=== PATIENT | male | born 1950 | race Caucasian/White ===

== ENCOUNTER 2017-06-30 14:29 | Emergency (ER) | payer MEDICARE ==
[~2017-06-30] VITALS: Ht 188 cm; Wt 86.5 kg
[~2017-06-30 14:29] MED LIST: DIAZ5TAB PO; HYDR-3240 PO; MAGN30OR PO; NONE PER PT; SENN-31 PO
[2017-06-30 14:30] VITALS: BP 117/71
[2017-06-30] MEDS ORDERED: IBUPROFEN 200 MG TABLET ONE (15:08)
[2017-06-30] MEDS ORDERED: IBUPROFEN 200 MG TABLET PO ONE (15:30)
== END 2017-06-30 15:16 | disposition home or self-care (01) ==
LOC: ED 15:00
DX: M51.16 Intervertebral disc disorders with radiculopathy, lumbar region (principal); F17.200 Nicotine dependence, unspecified, uncomplicated; I10 Essential (primary) hypertension; I73.9 Peripheral vascular disease, unspecified
CPT/HCPCS: 99283

== ENCOUNTER 2017-07-22 20:24 | Emergency (ER) | payer MEDICARE ==
[~2017-07-22] VITALS: Ht 188 cm; Wt 88.8 kg
[2017-07-22] MEDS ORDERED: PHENYLEPHRINE NASAL 1%, 15ML SPRAY ONE (20:59)
[2017-07-22] MEDS ORDERED: PHENYLEPHRINE NASAL 1%, 30ML DROPS NAS ONE (21:00)
[2017-07-22] MEDS ORDERED: ALBUTEROL/IPRATROPIUM 2.5MG/0.5MG, 3 ML ONE (21:22)
[2017-07-22 21:30] LABS: BASOPHILS # (AUTO) 0.06 x10^3/uL (0-0.1); BASOPHILS % (AUTO) 1 % (0-1); EOSINOPHILS # (AUTO) 0.55 x10^3/uL (0-0.4); EOSINOPHILS % (AUTO) 9 % (1-7); LYMPHOCYTES # (AUTO) 1.32 x10^3/uL (1-3.4); LYMPHOCYTES % (AUTO) 22 % (22-44); MD NO; MEAN CORPUSCULAR HEMOGLOBIN 33.9 pg (27.5-34.5); MEAN CORPUSCULAR HGB CONC 34.2 g/dL (33.2-36.2); MEAN CORPUSCULAR VOLUME 99.2 fL (81-97); MEAN PLATELET VOLUME 7.1 fL (7.4-10.4); MONOCYTES # (AUTO) 0.49 x10^3/uL (0.2-0.8); MONOCYTES % (AUTO) 8 % (2-9); NEUTROPHILS # (AUTO) 3.66 x10^3/uL (1.8-6.8); NEUTROPHILS % (AUTO) 60 % (42-75); PLATELET COUNT 207 x10^3/uL (130-400); RED BLOOD COUNT 4.16 x10^6/uL (4.38-5.82); RED CELL DISTRIBUTION WIDTH 12.6 % (9.4-14.8)
[2017-07-22] MEDS ORDERED: ALBUTEROL/IPRATROPIUM 2.5MG/0.5MG, 3 ML NPPB ONE (21:30)
[2017-07-22] MEDS ORDERED: SODIUM CHLORIDE FLUSH 10ML SYR IVF ONE (21:30)
[2017-07-22 21:41] LABS: ALBUMIN 3.3 g/dL (3.4-5.0); ANION GAP 10 mmol/L (5-15); CALCIUM 8.3 mg/dL (8.5-10.1); CHLORIDE 89 mmol/L (98-107); CREATININE 0.94 mg/dL (0.7-1.3)
[2017-07-22 22:18] VITALS: BP 117/48
== END 2017-07-22 22:20 | disposition home or self-care (01) ==
LOC: ED 20:54
DX: R04.0 Epistaxis (principal); J44.1 Chronic obstructive pulmonary disease with (acute) exacerbation; F17.200 Nicotine dependence, unspecified, uncomplicated
CPT/HCPCS: 36415; 71045; 80048; 82040; 85025; 94640; 99285; J7512; J7620

== ENCOUNTER 2019-04-29 20:35 | Inpatient (IN) | payer MEDICARE ==
[~2019-04-29] VITALS: Ht 175.3 cm; Wt 91.8 kg
[~2019-04-29 20:35] MED LIST changes: +ETOMIDATE 20 MG/10 ML ONE; +MIDAZOLAM 1 MG/ML, 5ML ONE; +PROPOFOL 100 ML IV ONE; +SUCCINYLCHOLINE 20 MG/ML, 10ML ONE
[2019-04-29] MEDS ORDERED: ALBUTEROL/IPRATROPIUM 2.5MG/0.5MG, 3 ML ONE ×2 (20:38→21:04)
--- NOTE | 2019-04-29 20:48 | NUR ---
PT TO T4. GIVEN 20 ETOMIDATE AND 100 SUCC, DR GEORGES INTUBATING NOW.
--- NOTE | 2019-04-29 20:55 | NUR ---
CXR DONE. 8.0 ET TUBE AND 25 AT THE LIP.
[2019-04-29] MEDS ORDERED: PROPOFOL 100 ML IV PRN (20:57)
[2019-04-29 20:58] LABS: BASOPHILS # (AUTO) 0.07 x10^3/uL (0-0.1); BASOPHILS % (AUTO) 1 % (0-1); EOSINOPHILS # (AUTO) 0.61 x10^3/uL (0-0.4); EOSINOPHILS % (AUTO) 5 % (1-7); LYMPHOCYTES # (AUTO) 3.54 x10^3/uL (1-3.4); LYMPHOCYTES % (AUTO) 31 % (22-44); MD NO; MEAN CORPUSCULAR HEMOGLOBIN 35.4 pg (27.5-34.5); MEAN CORPUSCULAR HGB CONC 33.3 g/dL (33.2-36.2); MEAN CORPUSCULAR VOLUME 106.2 fL (81-97); MEAN PLATELET VOLUME 7.3 fL (7.4-10.4); MONOCYTES # (AUTO) 0.66 x10^3/uL (0.2-0.8); MONOCYTES % (AUTO) 6 % (2-9); NEUTROPHILS # (AUTO) 6.69 x10^3/uL (1.8-6.8); NEUTROPHILS % (AUTO) 58 % (42-75); PLATELET COUNT 191 x10^3/uL (130-400); RED BLOOD COUNT 4.72 x10^6/uL (4.38-5.82); RED CELL DISTRIBUTION WIDTH 14.7 % (9.4-14.8)
[2019-04-29] MEDS ORDERED: SUCCINYLCHOLINE 20 MG/ML, 10ML IVPush ONE (21:00)
[2019-04-29] MEDS ORDERED: ETOMIDATE 20 MG/10 ML IV ONE (21:00)
[2019-04-29] MEDS ORDERED: SODIUM CHLORIDE FLUSH 10ML SYR IVF ONE (21:00)
[2019-04-29] MEDS ORDERED: MIDAZOLAM 1 MG/ML, 2ML IVPush PRN ×2 (21:00→22:30)
[2019-04-29] MEDS ORDERED: SODIUM CHLORIDE 0.9% 1,000ML IVBOLUS ONE (21:00)
--- NOTE | 2019-04-29 21:05 | NUR ---
REPORT RECEIVED FROM RAJANI ALTAMIRANO. ASSUMED CARE OF PT. PT INTUBATED AT THIS TIME, 8.0, 24 AT THE [facility].
[2019-04-29 21:09] LABS: ALANINE AMINOTRANSFERASE 21 U/L (12-78); ALBUMIN 3.6 g/dL (3.4-5.0); ANION GAP 7 mmol/L (5-15); CALCIUM 7.6 mg/dL (8.5-10.1); CHLORIDE 94 mmol/L (98-107); CREATININE 0.57 mg/dL (0.7-1.3)
[2019-04-29] MEDS ORDERED: FENTANYL PF 100 MCG/2ML ONE ×3 (21:09→21:32)
--- NOTE | 2019-04-29 21:10 | NUR ---
CORE TEMP 95, WARMING BLANKET PLACED ON PT
[2019-04-29 21:14] LABS: ALKALINE PHOSPHATASE 67 U/L (45-117); BILIRUBIN,TOTAL 0.7 mg/dL (0.2-1.0); TOTAL PROTEIN 7.2 g/dL (6.4-8.2); TROPONIN I < 0.015 ng/mL (0.000-0.045)
--- NOTE | 2019-04-29 21:20 | NUR ---
PT SUDDENLY BECAME HYPOTENSIVE, DR. GEORGES AWARE. NEEDLE DECOMPRESSION DONE TO RIGHT 2ND INTERCOSTAL SPACE MID CLAVICULAR, WHILE SETTING UP FOR CHEST TUBE. IV PUSHES OF FENTANYL AND VERSED USED FOR SEDATION UNTIL DRIPS CAN BE ORDERED.
--- NOTE | 2019-04-29 21:26 | NUR ---
CHEST TUBE INSERTED BY DR. GEORGES TO RELIEVE TENSION PNEUMO. SUTURED IN PLACE.
--- NOTE | 2019-04-29 21:40 | NUR ---
PT REMAINS HYPOTENSIVE DESPITE CHEST TUBE INSERTION. LUNG REINFLATING ON CHEST XRAY, BUBBLING NOTED IN CHEST TUBE PLEUR EVAC.
[2019-04-29] MEDS ORDERED: MIDAZOLAM 1 MG/ML, 2ML ONE ×2 (21:41)
--- NOTE | 2019-04-29 21:45 | NUR ---
PT HAS ALREADY RECEIVED 1 LITER OF FLUID BOLUS, DR. GEORGES ORDERED 3LITER TOTAL. FLUIDS RAPIDLY INFUSING.
[2019-04-29] MEDS ORDERED: MIDAZOLAM HCL 25 MG in SODIUM CHLORIDE 0.9% 245 ML IV PRN (22:07)
--- NOTE | 2019-04-29 22:19 | NUR ---
CT DELAY, PT IS INTUBATED
[2019-04-29] MEDS ORDERED: FENTANYL PF 2,500 MCG in SODIUM CHLORIDE 0.9% 200 ML IV PRN (22:30)
[2019-04-29] MEDS ORDERED: FENTANYL PF 100 MCG/2ML IV ONE ×3 (22:30)
[2019-04-29] MEDS ORDERED: MIDAZOLAM 1 MG/ML, 2ML IVPush ONE ×2 (22:30)
[2019-04-29] MEDS ORDERED: FENTANYL PF 100 MCG/2ML IVPush ONE (22:30)
--- NOTE | 2019-04-29 22:40 | NUR ---
PER DR. GEORGES START FENTANYL DRIP AT 100 MCG/HR, VERSED AT 5MG/HR
--- NOTE | 2019-04-29 23:00 | NUR ---
REPORT TO [facility]U RAJANI RODRIGUEZ
[2019-04-29] MEDS ORDERED: SODIUM CHLORIDE 0.9% 1,000 ML IV SCH (23:05)
[2019-04-29] MEDS ORDERED: PROMETHAZINE 25 MG/ML, 1ML IM PRN (23:30)
[2019-04-29] MEDS ORDERED: methylPREDNISolone SOD SUCC 125 MG/2 ML IVPush SCH (23:30)
[2019-04-29] MEDS ORDERED: morphine SULFATE 10 MG/ML, 1ML IVPush PRN (23:30)
[2019-04-29] MEDS ORDERED: DOCUSATE 100 MG CAPSULE PO PRN (23:30)
[2019-04-29] MEDS ORDERED: ALBUTEROL/IPRATROPIUM 2.5MG/0.5MG, 3 ML NPPB SCH (23:30)
[2019-04-29] MEDS ORDERED: POTASSIUM CHLORIDE 40 MEQ in SODIUM CHLORIDE 0.9% 500 ML IV ONE (23:30)
[2019-04-29] MEDS ORDERED: BISACODYL 10 MG SUPP PR PRN (23:30)
[2019-04-29] MEDS ORDERED: ONDANSETRON 2MG/ML, 2ML IVPush PRN (23:30)
[2019-04-29] MEDS ORDERED: POLYETHYLENE GLYCOL 17 GM PACKET PO PRN (23:30)
[2019-04-29] MEDS ORDERED: FAMOTIDINE 20 MG/2 ML IVPush SCH (23:30)
[2019-04-29] MEDS ORDERED: ONDANSETRON ODT 4 MG PO PRN (23:30)
[2019-04-29] MEDS ORDERED: ACETAMINOPHEN 325 MG TABLET PO PRN (23:30)
[2019-04-30] MEDS ORDERED: PROPOFOL 100 ML IV PRN (00:07)
[2019-04-30 00:21] LABS: FREE T4 (FREE THYROXINE) 0.91 ng/dL (0.76-1.46)
[2019-04-30] MEDS ORDERED: INSULIN REGULAR 100 UNITS/ML, 3ML VIAL SQ-INSULIN SCH (00:30)
[2019-04-30] MEDS ORDERED: DEXTROSE 4 GM TAB.CHEW PO PRN (00:30)
[2019-04-30] MEDS ORDERED: PHARMACY MAY ADJ FOR RENAL FX MC SCH (00:30)
[2019-04-30] MEDS ORDERED: FENTANYL PF 100 MCG/2ML IVPush PRN (00:30)
[2019-04-30] MEDS ORDERED: DEXTROSE 50%, 50ML SYRINGE IVPush PRN (00:30)
[2019-04-30] MEDS ORDERED: SODIUM CHLORIDE 0.9% 1,000ML IVBOLUS ONE (00:30)
[2019-04-30] MEDS ORDERED: LIDOCAINE-MPF 1%, 2ML ENDO PRN (00:30)
[2019-04-30] MEDS ORDERED: GLUCAGON 1 MG IM PRN (00:30)
[2019-04-30] MEDS ORDERED: BISACODYL 10 MG SUPP PR PRN (00:30)
[2019-04-30] MEDS ORDERED: SENNA 176 MG/5 ML ORAL SOL NG PRN (00:30)
[2019-04-30] MEDS ORDERED: SENNA/DOCUSATE TABLET NG PRN (00:30)
[2019-04-30] MEDS ORDERED: LACTULOSE 20 GM/30 ML UDC NG PRN (00:30)
[2019-04-30 00:33] LABS: HEMOGLOBIN A1C 5.1 % (4.2-6.3)
[2019-04-30] MEDS: PIPERACILLIN/TAZO/PMX 3.375GM 50 ML IV SCH ×4 (00:48→19:25)
[2019-04-30] MEDS: DIAZEPAM 5 MG/ML, 2ML IV ONE ×2 (00:48→03:24)
[2019-04-30] MEDS: FAMOTIDINE 20 MG/2 ML IV SCH ×2 (00:48→12:50)
[2019-04-30 00:50] LABS: AMPHETAMINE SCREEN, URINE Negative (Negative); BARBITURATE SCREEN, URINE Negative (Negative); BENZODIAZEPINE SCREEN, URINE Positive (Negative); CANNABINOID SCREEN, URINE Negative (Negative); COCAINE SCREEN, URINE Negative (Negative); METHADONE SCREEN, URINE Negative (Negative); OPIATE SCREEN, URINE Negative (Negative)
[2019-04-30] MEDS: DOXYCYCLINE 100 MG in DEXTROSE 5% 250 ML IV SCH ×2 (00:53→12:49)
[2019-04-30] MEDS: methylPREDNISolone SOD SUCC 125 MG/2 ML IVPush SCH ×4 (00:58→20:17)
[2019-04-30] MEDS: HEPARIN 5,000 UNITS/ML, 1ML SQ SCH ×3 (00:58→17:07)
[2019-04-30] MEDS ORDERED: MAGNESIUM SULFATE PMX 2GM/50ML 50 ML IV ONE (01:30)
[2019-04-30] MEDS: ALBUTEROL/IPRATROPIUM 2.5MG/0.5MG, 3 ML INLINE SCH ×3 (02:35→10:00)
[2019-04-30 03:01] VITALS: BP 115/64
[2019-04-30] MEDS: SODIUM CHLORIDE 0.9% 1,000 ML IV SCH ×3 (03:25→19:26)
[2019-04-30] MEDS: INSULIN REGULAR 100 UNITS/ML, 3ML VIAL SQ-INSULIN SCH ×4 (04:00→20:59)
[2019-04-30 04:20] LABS: BASOPHILS # (AUTO) 0.01 x10^3/uL (0-0.1); BASOPHILS % (AUTO) 0 % (0-1); EOSINOPHILS # (AUTO) 0.07 x10^3/uL (0-0.4); EOSINOPHILS % (AUTO) 1 % (1-7); LYMPHOCYTES # (AUTO) 0.28 x10^3/uL (1-3.4); LYMPHOCYTES % (AUTO) 4 % (22-44); MD NO; MEAN CORPUSCULAR HEMOGLOBIN 35.5 pg (27.5-34.5); MEAN CORPUSCULAR HGB CONC 33.7 g/dL (33.2-36.2); MEAN CORPUSCULAR VOLUME 105.1 fL (81-97); MEAN PLATELET VOLUME 7.2 fL (7.4-10.4); MONOCYTES % (AUTO) 2 % (2-9); NEUTROPHILS # (AUTO) 6.15 x10^3/uL (1.8-6.8); NEUTROPHILS % (AUTO) 93 % (42-75); PLATELET COUNT 130 x10^3/uL (130-400); RED BLOOD COUNT 4.17 x10^6/uL (4.38-5.82); RED CELL DISTRIBUTION WIDTH 14.1 % (9.4-14.8)
[2019-04-30 04:28] LABS: ALANINE AMINOTRANSFERASE 16 U/L (12-78); ANION GAP 8 mmol/L (5-15); CALCIUM 6.8 mg/dL (8.5-10.1); CHLORIDE 103 mmol/L (98-107)
[2019-04-30 04:30] LABS: ALKALINE PHOSPHATASE 55 U/L (45-117); BILIRUBIN,TOTAL 0.7 mg/dL (0.2-1.0); CHOLESTEROL, TOTAL 119 mg/dL (140-239); HDL CHOL % 50 % (26-37); HDL CHOLESTEROL (DIRECT) 59 mg/dL (40-60); LDL CHOLESTEROL,CALCULATED 49 mg/dL (54-169); LDL/HDL RATIO 0.8 (0.5-3.0); TOTAL PROTEIN 5.7 g/dL (6.4-8.2); TRIGLYCERIDES 57 mg/dL (50-200); VLDL CHOLESTEROL 11 mg/dL (0-25)
[2019-04-30] MEDS: SODIUM CHLORIDE FLUSH 10ML SYR IVF SCH ×2 (09:02→19:26)
[2019-04-30] MEDS: ALBUTEROL/IPRATROPIUM 2.5MG/0.5MG, 3 ML NPPB SCH ×3 (10:21→18:48)
[2019-04-30] MEDS ORDERED: ALBUTEROL/IPRATROPIUM 2.5MG/0.5MG, 3 ML NPPB PRN (10:30)
[2019-04-30] MEDS: hydrALAzine 20 MG/ML, 1ML IVPush PRN (17:45)
[2019-04-30] MEDS ORDERED: DEXMEDETOMIDINE 200 MCG in SODIUM CHLORIDE 0.9% 48 ML IV PRN (19:36)
[2019-04-30] MEDS ORDERED: PHARMACY INSTRUCTION MC PRN ×4 (20:00)
[2019-04-30] MEDS ORDERED: PHENOBARBITAL SODIUM 710 MG in SODIUM CHLORIDE 0.9% 50 ML IVPB ONE (20:00)
[2019-04-30] MEDS ORDERED: THIAMINE IV SCH (20:30)
[2019-04-30] MEDS ORDERED: FOLIC ACID IV SCH (20:30)
[2019-04-30] MEDS ORDERED: MVI ADULT IV SCH (20:30)
[2019-04-30] MEDS ORDERED: D5 IV SCH (20:30)
[2019-04-30] MEDS ORDERED: NACL IV SCH (20:30)
[2019-04-30] MEDS ORDERED: SODIUM CHLORIDE 0.9% IVPB ONE (23:00)
[2019-04-30] MEDS ORDERED: PHENOBARBITAL SODIUM IVPB ONE (23:00)
[2019-05-01] MEDS: HEPARIN 5,000 UNITS/ML, 1ML SQ SCH ×3 (01:00→17:35)
[2019-05-01] MEDS: hydrALAzine 20 MG/ML, 1ML IVPush PRN (01:03)
[2019-05-01] MEDS: FAMOTIDINE 20 MG/2 ML IV SCH ×2 (01:03→14:13)
[2019-05-01] MEDS: DOXYCYCLINE 100 MG in DEXTROSE 5% 250 ML IV SCH ×2 (01:04→14:19)
[2019-05-01] MEDS: SODIUM CHLORIDE 0.9% 1,000 ML IV SCH ×2 (02:31→14:20)
[2019-05-01] MEDS: PIPERACILLIN/TAZO/PMX 3.375GM 50 ML IV SCH ×3 (03:05→14:14)
[2019-05-01] MEDS: methylPREDNISolone SOD SUCC 125 MG/2 ML IVPush SCH ×4 (03:05→20:30)
[2019-05-01] MEDS: INSULIN REGULAR 100 UNITS/ML, 3ML VIAL SQ-INSULIN SCH ×4 (03:06→21:53)
[2019-05-01 04:46] LABS: MEAN CORPUSCULAR HEMOGLOBIN 34.9 pg (27.5-34.5); MEAN CORPUSCULAR HGB CONC 33.4 g/dL (33.2-36.2); MEAN CORPUSCULAR VOLUME 104.7 fL (81-97); MEAN PLATELET VOLUME 7.3 fL (7.4-10.4); PLATELET COUNT 110 x10^3/uL (130-400); RED BLOOD COUNT 4.25 x10^6/uL (4.38-5.82); RED CELL DISTRIBUTION WIDTH 14.8 % (9.4-14.8)
[2019-05-01 04:55] LABS: ALANINE AMINOTRANSFERASE 17 U/L (12-78); ALBUMIN 2.9 g/dL (3.4-5.0); ANION GAP 5 mmol/L (5-15); CALCIUM 7.3 mg/dL (8.5-10.1); CHLORIDE 104 mmol/L (98-107)
[2019-05-01 04:58] LABS: ALKALINE PHOSPHATASE 47 U/L (45-117); BILIRUBIN,TOTAL 0.8 mg/dL (0.2-1.0); CREATININE 0.64 mg/dL (0.7-1.3); TOTAL PROTEIN 5.9 g/dL (6.4-8.2)
[2019-05-01] MEDS: PHENOBARBITAL SODIUM 65 MG/ML, 1ML IM SCH ×2 (05:10→17:21)
[2019-05-01 05:21] LABS: BASOPHILS # (AUTO) 0.01 x10^3/uL (0-0.1); BASOPHILS % (AUTO) 0 % (0-1); EOSINOPHILS % (AUTO) 0 % (1-7); LYMPHOCYTES % (AUTO) 3 % (22-44); MD SCAN; MONOCYTES # (AUTO) 0.25 x10^3/uL (0.2-0.8); MONOCYTES % (AUTO) 2 % (2-9); NEUTROPHILS # (AUTO) 10.87 x10^3/uL (1.8-6.8); NEUTROPHILS % (AUTO) 95 % (42-75)
[2019-05-01] MEDS: SODIUM CHLORIDE FLUSH 10ML SYR IVF SCH ×2 (08:12→21:00)
[2019-05-01] MEDS: ALBUTEROL/IPRATROPIUM 2.5MG/0.5MG, 3 ML NPPB SCH ×3 (10:35→20:50)
[2019-05-01] MEDS: AMPICILLIN/SULBACTAM 3 GM in SODIUM CHLORIDE 0.9% 100 ML IV SCH (18:10)
[2019-05-01] MEDS: LACTOBACILLUS CHEW TABLET PO SCH (21:54)
[2019-05-02] VITALS: BP 134/55
[2019-05-02] MEDS: HEPARIN 5,000 UNITS/ML, 1ML SQ SCH ×3 (00:11→17:47)
[2019-05-02] MEDS: AMPICILLIN/SULBACTAM 3 GM in SODIUM CHLORIDE 0.9% 100 ML IV SCH ×4 (00:11→18:35)
[2019-05-02] MEDS: methylPREDNISolone SOD SUCC 125 MG/2 ML IVPush SCH ×4 (01:24→20:03)
[2019-05-02] MEDS: INSULIN REGULAR 100 UNITS/ML, 3ML VIAL SQ-INSULIN SCH ×4 (04:00→20:35)
[2019-05-02] MEDS: PHENOBARBITAL SODIUM 65 MG/ML, 1ML IM SCH ×2 (04:20→17:47)
[2019-05-02 04:23] VITALS: BP 160/76
[2019-05-02 04:44] LABS: ALBUMIN 2.7 g/dL (3.4-5.0); ANION GAP 5 mmol/L (5-15); CALCIUM 7.8 mg/dL (8.5-10.1); CHLORIDE 104 mmol/L (98-107)
[2019-05-02 05:09] LABS: ALANINE AMINOTRANSFERASE 17 U/L (12-78); ALKALINE PHOSPHATASE 40 U/L (45-117); BILIRUBIN,TOTAL 0.7 mg/dL (0.2-1.0); CREATININE 0.57 mg/dL (0.7-1.3)
[2019-05-02 05:21] LABS: BASOPHILS # (AUTO) 0.01 x10^3/uL (0-0.1); BASOPHILS % (AUTO) 0 % (0-1); EOSINOPHILS % (AUTO) 0 % (1-7); LYMPHOCYTES # (AUTO) 0.34 x10^3/uL (1-3.4); LYMPHOCYTES % (AUTO) 4 % (22-44); MD NO; MEAN CORPUSCULAR HEMOGLOBIN 35.2 pg (27.5-34.5); MEAN CORPUSCULAR HGB CONC 33.3 g/dL (33.2-36.2); MEAN CORPUSCULAR VOLUME 105.7 fL (81-97); MEAN PLATELET VOLUME 7.4 fL (7.4-10.4); MONOCYTES # (AUTO) 0.23 x10^3/uL (0.2-0.8); MONOCYTES % (AUTO) 3 % (2-9); NEUTROPHILS # (AUTO) 8.17 x10^3/uL (1.8-6.8); NEUTROPHILS % (AUTO) 93 % (42-75); PLATELET COUNT 106 x10^3/uL (130-400); RED BLOOD COUNT 4.07 x10^6/uL (4.38-5.82); RED CELL DISTRIBUTION WIDTH 14.8 % (9.4-14.8)
[2019-05-02] MEDS: ALBUTEROL/IPRATROPIUM 2.5MG/0.5MG, 3 ML NPPB SCH ×4 (06:50→19:06)
[2019-05-02] MEDS ORDERED: ZIPRASIDONE 20 MG INJ IM PRN (08:30)
[2019-05-02] MEDS: SODIUM CHLORIDE FLUSH 10ML SYR IVF SCH ×2 (09:00→20:03)
[2019-05-02] MEDS: MULTIVITAMIN 1 TABLET PO SCH (09:16)
[2019-05-02] MEDS: LACTOBACILLUS CHEW TABLET PO SCH ×3 (09:16→20:35)
[2019-05-02] MEDS: FOLIC ACID 1 MG TABLET PO SCH (09:16)
[2019-05-02] MEDS: THIAMINE 100MG TABLET PO SCH (09:16)
[2019-05-02] MEDS ORDERED: POTASSIUM PHOSPHATE 22 MEQ in SODIUM CHLORIDE 0.9% 250 ML IV ONE (15:00)
[2019-05-02] MEDS: hydrALAzine 20 MG/ML, 1ML IVPush PRN (21:58)
[2019-05-03] MEDS: HEPARIN 5,000 UNITS/ML, 1ML SQ SCH ×3 (00:24→15:51)
[2019-05-03] MEDS: AMPICILLIN/SULBACTAM 3 GM in SODIUM CHLORIDE 0.9% 100 ML IV SCH ×3 (00:24→12:04)
[2019-05-03] MEDS: methylPREDNISolone SOD SUCC 125 MG/2 ML IVPush SCH (02:00)
[2019-05-03] MEDS: INSULIN REGULAR 100 UNITS/ML, 3ML VIAL SQ-INSULIN SCH ×4 (04:00→20:49)
[2019-05-03] MEDS: hydrALAzine 20 MG/ML, 1ML IVPush PRN (04:39)
[2019-05-03 04:56] LABS: ALANINE AMINOTRANSFERASE 20 U/L (12-78); ALBUMIN 2.8 g/dL (3.4-5.0); ANION GAP 2 mmol/L (5-15); BASOPHILS # (AUTO) 0.01 x10^3/uL (0-0.1); BASOPHILS % (AUTO) 0 % (0-1); CALCIUM 7.7 mg/dL (8.5-10.1); CHLORIDE 101 mmol/L (98-107); CREATININE 0.48 mg/dL (0.7-1.3); EOSINOPHILS % (AUTO) 0 % (1-7); LYMPHOCYTES # (AUTO) 0.31 x10^3/uL (1-3.4); LYMPHOCYTES % (AUTO) 3 % (22-44); MD NO; MEAN CORPUSCULAR HEMOGLOBIN 35.4 pg (27.5-34.5); MEAN CORPUSCULAR HGB CONC 33.5 g/dL (33.2-36.2); MEAN CORPUSCULAR VOLUME 105.6 fL (81-97); MEAN PLATELET VOLUME 7.9 fL (7.4-10.4); MONOCYTES # (AUTO) 0.32 x10^3/uL (0.2-0.8); MONOCYTES % (AUTO) 3 % (2-9); NEUTROPHILS # (AUTO) 8.84 x10^3/uL (1.8-6.8); NEUTROPHILS % (AUTO) 93 % (42-75); PLATELET COUNT 121 x10^3/uL (130-400); RED BLOOD COUNT 4.14 x10^6/uL (4.38-5.82); RED CELL DISTRIBUTION WIDTH 14.5 % (9.4-14.8)
[2019-05-03 04:58] LABS: ALKALINE PHOSPHATASE 35 U/L (45-117); BILIRUBIN,TOTAL 0.7 mg/dL (0.2-1.0); TOTAL PROTEIN 5.9 g/dL (6.4-8.2)
[2019-05-03] MEDS: PHENOBARBITAL 20 MG/5 ML ORAL SOL PO SCH ×2 (05:07→15:51)
[2019-05-03] MEDS: ALBUTEROL/IPRATROPIUM 2.5MG/0.5MG, 3 ML NPPB SCH ×4 (07:15→18:57)
[2019-05-03] MEDS: THIAMINE 100MG TABLET PO SCH (08:45)
[2019-05-03] MEDS: LACTOBACILLUS CHEW TABLET PO SCH ×3 (08:45→20:02)
[2019-05-03] MEDS: FOLIC ACID 1 MG TABLET PO SCH (08:47)
[2019-05-03] MEDS: MULTIVITAMIN 1 TABLET PO SCH (08:47)
[2019-05-03] MEDS: methylPREDNISolone SOD SUCC 40 MG/ML IVPush SCH ×2 (08:47→17:42)
[2019-05-03] MEDS: OXYcodone IR 5MG TABLET PO PRN ×2 (08:47→13:14)
[2019-05-03] MEDS: SODIUM CHLORIDE FLUSH 10ML SYR IVF SCH ×2 (08:48→20:02)
[2019-05-04] MEDS: HEPARIN 5,000 UNITS/ML, 1ML SQ SCH ×3 (02:00→16:34)
[2019-05-04] MEDS: methylPREDNISolone SOD SUCC 40 MG/ML IVPush SCH ×3 (02:00→21:19)
[2019-05-04] MEDS: INSULIN REGULAR 100 UNITS/ML, 3ML VIAL SQ-INSULIN SCH ×4 (04:00→22:00)
[2019-05-04] MEDS: PHENOBARBITAL 20 MG/5 ML ORAL SOL PO SCH ×2 (04:51→16:34)
[2019-05-04] MEDS: ALBUTEROL/IPRATROPIUM 2.5MG/0.5MG, 3 ML NPPB SCH ×4 (07:30→20:00)
[2019-05-04] MEDS: MULTIVITAMIN 1 TABLET PO SCH (09:19)
[2019-05-04] MEDS: LACTOBACILLUS CHEW TABLET PO SCH ×3 (09:19→21:19)
[2019-05-04] MEDS: FOLIC ACID 1 MG TABLET PO SCH (09:19)
[2019-05-04] MEDS: SODIUM CHLORIDE FLUSH 10ML SYR IVF SCH ×2 (09:20→21:19)
[2019-05-04] MEDS: THIAMINE 100MG TABLET PO SCH (09:21)
[2019-05-04 14:01] VITALS: BP 153/69
[2019-05-04 19:17] VITALS: BP 145/70
[2019-05-04] MEDS: AMPICILLIN/SULBACTAM 3 GM in SODIUM CHLORIDE 0.9% 100 ML IV SCH (23:30)
[2019-05-05 01:18] VITALS: BP 145/67
[2019-05-05] MEDS: HEPARIN 5,000 UNITS/ML, 1ML SQ SCH (01:41)
[2019-05-05] MEDS: INSULIN REGULAR 100 UNITS/ML, 3ML VIAL SQ-INSULIN SCH ×4 (04:00→21:43)
[2019-05-05] MEDS: AMPICILLIN/SULBACTAM 3 GM in SODIUM CHLORIDE 0.9% 100 ML IV SCH (05:47)
[2019-05-05] MEDS: PHENOBARBITAL 20 MG/5 ML ORAL SOL PO SCH ×2 (05:47→16:56)
[2019-05-05 07:25] VITALS: BP 178/79
[2019-05-05] MEDS: SODIUM CHLORIDE FLUSH 10ML SYR IVF SCH ×2 (07:53→21:37)
[2019-05-05] MEDS: methylPREDNISolone SOD SUCC 40 MG/ML IVPush SCH (07:53)
[2019-05-05] MEDS: LACTOBACILLUS CHEW TABLET PO SCH ×3 (07:54→21:37)
[2019-05-05] MEDS: THIAMINE 100MG TABLET PO SCH (07:54)
[2019-05-05] MEDS: hydrALAzine 20 MG/ML, 1ML IVPush PRN (07:54)
[2019-05-05] MEDS: FOLIC ACID 1 MG TABLET PO SCH (07:54)
[2019-05-05] MEDS: MULTIVITAMIN 1 TABLET PO SCH (07:54)
[2019-05-05 08:38] LABS: HIT RESULT POSITIVE (NEGATIVE)
[2019-05-05] MEDS: ALBUTEROL/IPRATROPIUM 2.5MG/0.5MG, 3 ML NPPB SCH ×4 (08:49→19:37)
[2019-05-05 10:44] VITALS: BP 142/77
[2019-05-05] MEDS: LISINOPRIL 10 MG TABLET PO SCH ×2 (10:51→21:40)
[2019-05-05] MEDS: CEFAZOLIN PMX 1GM/50ML 50 ML IV SCH ×2 (10:51→18:12)
[2019-05-05 13:13] VITALS: BP 119/66
[2019-05-05 19:20] VITALS: BP 144/73
[2019-05-05] MEDS: OXYcodone IR 5MG TABLET PO PRN (21:36)
[2019-05-06] MEDS: CEFAZOLIN PMX 1GM/50ML 50 ML IV SCH (02:36)
[2019-05-06 02:47] VITALS: BP 134/71
[2019-05-06] MEDS: INSULIN REGULAR 100 UNITS/ML, 3ML VIAL SQ-INSULIN SCH (04:00)
[2019-05-06] MEDS ORDERED: PHENOBARBITAL 20 MG/5 ML ORAL SOL PO SCH (05:00)
[2019-05-06 05:31] LABS: BASOPHILS # (AUTO) 0.01 x10^3/uL (0-0.1); BASOPHILS % (AUTO) 0 % (0-1); EOSINOPHILS # (AUTO) 0.07 x10^3/uL (0-0.4); EOSINOPHILS % (AUTO) 1 % (1-7); LYMPHOCYTES # (AUTO) 1.34 x10^3/uL (1-3.4); LYMPHOCYTES % (AUTO) 26 % (22-44); MD NO; MEAN CORPUSCULAR HEMOGLOBIN 35.2 pg (27.5-34.5); MEAN CORPUSCULAR HGB CONC 33.2 g/dL (33.2-36.2); MEAN PLATELET VOLUME 7.5 fL (7.4-10.4); MONOCYTES # (AUTO) 0.52 x10^3/uL (0.2-0.8); MONOCYTES % (AUTO) 10 % (2-9); NEUTROPHILS % (AUTO) 62 % (42-75); PLATELET COUNT 123 x10^3/uL (130-400); RED BLOOD COUNT 3.74 x10^6/uL (4.38-5.82)
[2019-05-06 05:37] LABS: INTERNATIONAL NORMALIZED RATIO 1.01 (0.93-1.1); PROTHROMBIN TIME 10.6 Seconds (9.6-11.5)
[2019-05-06 05:39] LABS: CHLORIDE 99 mmol/L (98-107)
[2019-05-06 05:44] LABS: ANION GAP 6 mmol/L (5-15); CALCIUM 7.7 mg/dL (8.5-10.1); CREATININE 0.47 mg/dL (0.7-1.3)
[2019-05-06] MEDS: ALBUTEROL/IPRATROPIUM 2.5MG/0.5MG, 3 ML NPPB SCH ×4 (07:00→19:36)
[2019-05-06 07:12] VITALS: BP 147/77
[2019-05-06] MEDS: FOLIC ACID 1 MG TABLET PO SCH (08:02)
[2019-05-06] MEDS: THIAMINE 100MG TABLET PO SCH (08:02)
[2019-05-06] MEDS: LACTOBACILLUS CHEW TABLET PO SCH ×3 (08:02→20:59)
[2019-05-06] MEDS: LISINOPRIL 10 MG TABLET PO SCH ×2 (08:02→21:00)
[2019-05-06] MEDS: MULTIVITAMIN 1 TABLET PO SCH (08:02)
[2019-05-06] MEDS: SODIUM CHLORIDE FLUSH 10ML SYR IVF SCH ×2 (08:03→21:00)
[2019-05-06] MEDS: AMPICILLIN/SULBACTAM 3 GM in SODIUM CHLORIDE 0.9% 100 ML IV SCH ×3 (10:32→22:53)
[2019-05-06 13:17] VITALS: BP 143/80
[2019-05-06 19:45] VITALS: BP 145/73
[2019-05-07 02:33] VITALS: BP 125/63
[2019-05-07] MEDS: AMPICILLIN/SULBACTAM 3 GM in SODIUM CHLORIDE 0.9% 100 ML IV SCH ×2 (04:44→10:45)
[2019-05-07] MEDS: ALBUTEROL/IPRATROPIUM 2.5MG/0.5MG, 3 ML NPPB SCH (07:19)
[2019-05-07 08:16] VITALS: BP 117/58
[2019-05-07] MEDS: MULTIVITAMIN 1 TABLET PO SCH (09:48)
[2019-05-07] MEDS: THIAMINE 100MG TABLET PO SCH (09:49)
[2019-05-07 09:50] VITALS: BP 138/68
[2019-05-07] MEDS: LACTOBACILLUS CHEW TABLET PO SCH (09:50)
[2019-05-07] MEDS: SODIUM CHLORIDE FLUSH 10ML SYR IVF SCH (09:51)
[2019-05-07] MEDS: LISINOPRIL 10 MG TABLET PO SCH (09:51)
[2019-05-07] MEDS: FOLIC ACID 1 MG TABLET PO SCH (09:51)
[2019-05-07] MEDS ORDERED: ALBUTEROL/IPRATROPIUM 2.5MG/0.5MG, 3 ML NPPB PRN (11:30)
[2019-05-07 13:40] VITALS: BP 128/65
[2019-05-07] MEDS ORDERED: FOLI-17 PO (14:14)
[2019-05-07] MEDS ORDERED: PRED5TAB PO (14:14)
[2019-05-07] MEDS ORDERED: ACID1TAB7 PO (14:14)
[2019-05-07] MEDS ORDERED: MULT1TAB60 PO (14:14)
[2019-05-07] MEDS ORDERED: IPRA3AMP30 NPPB (14:14)
[2019-05-07] MEDS ORDERED: DOCU100C33 PO (14:14)
[2019-05-07] MEDS ORDERED: THIA100T67 PO (14:14)
[2019-05-07] MEDS ORDERED: LISI-167 PO (14:14)
[2019-05-07] MEDS ORDERED: LEVO750T26 PO (14:14)
== END 2019-05-07 15:34 | disposition home or self-care (01) | DRG 208 ==
LOC: ED 21:16 → EDIP 23:25 → CCU 23:37 → 4NE 05-04 13:44 → DCLOUNGE 05-07 15:21
PROVIDERS: ADMIT Internal Medicine; ATTEND Internal Medicine
PROC: 0BH17EZ Insertion of Endotracheal Airway into Trachea, Via Natural or Artificial Opening (ICD-10-PCS; principal; 2019-04-29)
PROC: 5A1945Z Respiratory Ventilation, 24-96 Consecutive Hours (ICD-10-PCS; 2019-04-29)
PROC: 0W9930Z Drainage of Right Pleural Cavity with Drainage Device, Percutaneous Approach (ICD-10-PCS; 2019-04-29)
DX: J96.02 Acute respiratory failure with hypercapnia (principal); J93.0 Spontaneous tension pneumothorax; G92 Toxic encephalopathy; J15.4 Pneumonia due to other streptococci; S22.41XA Multiple fractures of ribs, right side, initial encounter for closed fracture; S32.029A Unspecified fracture of second lumbar vertebra, initial encounter for closed fracture; S32.019A Unspecified fracture of first lumbar vertebra, initial encounter for closed fracture; E87.1 Hypo-osmolality and hyponatremia; J44.0 Chronic obstructive pulmonary disease with (acute) lower respiratory infection; J44.1 Chronic obstructive pulmonary disease with (acute) exacerbation; Z99.11 Dependence on respirator [ventilator] status; F10.239 Alcohol dependence with withdrawal, unspecified; T79.7XXA Traumatic subcutaneous emphysema, initial encounter; D69.6 Thrombocytopenia, unspecified; D75.89 Other specified diseases of blood and blood-forming organs; E86.0 Dehydration; E87.6 Hypokalemia; E88.09 Other disorders of plasma-protein metabolism, not elsewhere classified; F10.229 Alcohol dependence with intoxication, unspecified; F17.210 Nicotine dependence, cigarettes, uncomplicated; I10 Essential (primary) hypertension; I73.9 Peripheral vascular disease, unspecified; W18.30XA Fall on same level, unspecified, initial encounter; Y93.89 Activity, other specified; Y92.89 Other specified places as the place of occurrence of the external cause; Y99.8 Other external cause status; Z86.73 Personal history of transient ischemic attack (TIA), and cerebral infarction without residual deficits
CPT/HCPCS: 31500; 36415; 36600; 51702; 70450; 71045; 71250; 80048; 80053; 80061; 80307; 82330; 82542; 82607; 82803; 82962; 83036; 83605; 83735; 83880; 84100; 84145; 84439; 84443; 84478; 84484; 85025; 85610; 86022; 87040; 87070; 87081; 87181; 87205; 93005; 93970; 94002; 94003; 94640; 99292; G0378; J0295; J0690; J1644; J1815; J2250; J2543; J2560; J2704; J3010; J3360; J3411; J3480; J7060; J7620; J0330; J0360; J2920; J2930; J3475; J3490; J7030; J7040; J7050; J7512

== ENCOUNTER 2020-12-28 09:21 | Observation (INO) | payer MEDICARE ==
[~2020-12-28] VITALS: Ht 188 cm; Wt 65.1 kg
[~2020-12-28 09:21] MED LIST changes: +ACID1TAB7 PO; +ASCO500C10 PO; +CALC-780 PO; +DOCU100C33 PO; -ETOMIDATE 20 MG/10 ML ONE; +FOLI1TAB32 PO; +HYDR-2214 PO; -HYDR-3240 PO; +IPRA3AMP30 NPPB; +LEVO750T26 PO; +LISI-167 PO; -MIDAZOLAM 1 MG/ML, 5ML ONE; +MULT-449 PO; +PRED5TAB PO; -PROPOFOL 100 ML IV ONE; -SUCCINYLCHOLINE 20 MG/ML, 10ML ONE; +THIA100T67 PO
--- NOTE | 2020-12-28 09:49 | NUR ---
PATIENT BIB EMS DUE TO SPOUSE STATING "I CANNOT TAKE CARE OF HIM ANYMORE, I NEED A BREAK." NO INTERVENTIONS AND VSS EN ROUTE, PATIENT DENIES ANY PAIN OR MEDICAL CONCERNS. UPON ASSESSMENT PATIENT A&[id number], KNOWS HIS NAME AND AND THAT HE IS AT THE HOSPITAL, DOES NOT KNOW WHY HE IS HERE OR WHO THE PRESIDENT IS OR WHAT THE YEAR IS. WHEN ASKED WHO THE PRESIDENT IS, PATIENT STATES "I DON'T KNOW HIS NAME, HE HAS A WEIRD NAME." PATIENT DENIES PAIN, NO MEDICAL CONCERNS, ABLE TO ANSWER QUESTIONS ABOUT HIS MEDICAL HISTORY, VSS, CALL LIGHT WITHIN REACH.
--- NOTE | 2020-12-28 10:45 | NUR ---
PATIENT MEDICATED PER eMAR, BP 167/83, OTHER VSS, URINE COLLECTED AND SENT TO LAB. PATIENT TO CT SCAN.
[2020-12-28 10:46] LABS: BASOPHILS % (AUTO) 1 % (0-1); EOSINOPHILS % (AUTO) 5 % (1-7); LYMPHOCYTES % (AUTO) 19 % (22-44); MEAN CORPUSCULAR HEMOGLOBIN 35.9 pg (27.5-34.5); MEAN CORPUSCULAR HGB CONC 35.6 g/dL (33.2-36.2); MEAN PLATELET VOLUME 7.5 fL (7.4-10.4); MONOCYTES % (AUTO) 9 % (2-9); NEUTROPHILS % (AUTO) 66 % (42-75); PLATELET COUNT 192 x10^3/uL (130-400); RED BLOOD COUNT 4.31 x10^6/uL (4.38-5.82); RED CELL DISTRIBUTION WIDTH 13.6 % (9.4-14.8)
[2020-12-28 10:54] LABS: MICROSCOPIC NOT IND
[2020-12-28 10:59] LABS: ALANINE AMINOTRANSFERASE 18 U/L (12-78); ALBUMIN 3.9 g/dL (3.4-5.0); ANION GAP 6 mmol/L (5-15); CALCIUM 8.9 mg/dL (8.5-10.1); CHLORIDE 96 mmol/L (98-107); CREATININE 0.98 mg/dL (0.7-1.3); GAMMA GLUTAMYL TRANSPEPTIDASE 14 U/L (15-85)
[2020-12-28 11:04] LABS: ALKALINE PHOSPHATASE 61 U/L (45-117); TOTAL PROTEIN 7.6 g/dL (6.4-8.2); TROPONIN I < 0.015 ng/mL (0.000-0.045)
--- NOTE | 2020-12-28 11:17 | NUR ---
break rn = pt placed on 2l nc o2 due to mid to high 80's o2 sat
--- NOTE | 2020-12-28 11:56 | NUR ---
PATIENT FOUND STANDING UP IN ROOM, TAKING MONITORING EQUIPMENT OFF AND GOWN, APPEARS CONFUSED TO WHAT IS GOING ON. EDUCATED PATIENT THAT ERMD NEEDS TO COME BACK IN AND REASSESS, PATIENT REDIRECTED TO [facility] AND RE-ATTACHED TO MONITORING EQUIPMENT, ERMD NOTIFIED.
--- NOTE | 2020-12-28 12:06 | NUR ---
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
--- NOTE | 2020-12-28 12:48 | NUR ---
ALEXANDER REYNA SPOKE WITH PATIENT, WILL TALK WITH ERMD TO DISCUSS POC.
--- NOTE | 2020-12-28 12:48 | NUR ---
BEDSIDE REPORT GIVEN TO RAJANI COLES FOR TRANSFER OF PATIENT CARE.
--- NOTE | 2020-12-28 14:06 | NUR ---
PER DR. STEWART NO IV NECESSARY FOR PATIENT AT THIS TIME. REPORT TO RAJANI CANTRELL. RAJANI CANTRELL AWARE OF NO IV.
[2020-12-28] MEDS ORDERED: ONDANSETRON 2MG/ML, 2ML IVPush PRN (14:30)
[2020-12-28] MEDS ORDERED: ENALAPRILAT 1.25 MG/ML, 2ML IVPush PRN (14:30)
[2020-12-28] MEDS ORDERED: BISACODYL 10 MG SUPP PR PRN (14:30)
[2020-12-28] MEDS ORDERED: POLYETHYLENE GLYCOL 17 GM PACKET PO PRN (14:30)
[2020-12-28] MEDS ORDERED: ACETAMINOPHEN 325 MG TABLET PO PRN (14:30)
[2020-12-28 15:17] VITALS: BP 171/85
[2020-12-28 18:38] VITALS: BP 226/91
[2020-12-28] MEDS ORDERED: HALOPERIDOL 5 MG/ML IM PRN (20:00)
[2020-12-28] MEDS ORDERED: LISINOPRIL 20 MG TABLET PO ONE (20:00)
[2020-12-29 00:38] VITALS: BP 220/69
[2020-12-29 02:38] VITALS: BP 149/64
[2020-12-29 03:20] LABS: AMPHETAMINE SCREEN, URINE Negative (Negative); BARBITURATE SCREEN, URINE Negative (Negative); BENZODIAZEPINE SCREEN, URINE Negative (Negative); CANNABINOID SCREEN, URINE Negative (Negative); COCAINE SCREEN, URINE Negative (Negative); METHADONE SCREEN, URINE Negative (Negative); OPIATE SCREEN, URINE Negative (Negative)
[2020-12-29] MEDS ORDERED: LISINOPRIL 10 MG TABLET PO SCH (09:00)
[2020-12-29 09:18] VITALS: BP 131/79
[2020-12-29] MEDS ORDERED: AMLO-150 PO (09:49)
[2020-12-29] MEDS ORDERED: AMLODIPINE 5 MG TABLET PO SCH (10:00)
[2020-12-29 13:05] VITALS: BP 129/78
== END 2020-12-29 16:22 | disposition home or self-care (01) ==
LOC: ED 09:40 → 3N 14:00 → INTOOBSV 14:00
PROVIDERS: ADMIT Emergency Medicine; ATTEND Hospitalist
DX: G93.41 Metabolic encephalopathy (principal); I10 Essential (primary) hypertension; D75.89 Other specified diseases of blood and blood-forming organs; J44.9 Chronic obstructive pulmonary disease, unspecified; I73.9 Peripheral vascular disease, unspecified; F17.210 Nicotine dependence, cigarettes, uncomplicated; F15.10 Other stimulant abuse, uncomplicated; F03.90 Unspecified dementia, unspecified severity, without behavioral disturbance, psychotic disturbance, mood disturbance, and anxiety; Z72.89 Other problems related to lifestyle; Z79.899 Other long term (current) drug therapy
CPT/HCPCS: 36415; 70450; 71045; 80053; 80307; 80320; 81003; 82140; 82607; 82977; 83036; 83605; 84443; 84484; 85025; 87040; 92523; 93005; 96372; 99285; G0378; J1630; G0480